=== PATIENT | male | born 1975 | race Caucasian/White ===

== ENCOUNTER 2020-07-26 15:17 | Emergency (ER) | payer BC, OTHER ==
[~2020-07-26] VITALS: Ht 180.3 cm; Wt 111.6 kg
[2020-07-26] MEDS ORDERED: VENTOLIN HFA 1818 GM INH (15:30)
[2020-07-26] MEDS ORDERED: SUPER THERAVIT1 EACH PO (15:30)
[2020-07-26] MEDS ORDERED: NORCO 10-325 T1 EACH PO (15:30)
[2020-07-26] MEDS ORDERED: REQUIP 1 MG TABL1 M1 PO (15:30)
[2020-07-26] MEDS ORDERED: GABAPENTIN800 M1 PO (15:31)
[2020-07-26] MEDS ORDERED: TRAZODONE HCL50 MG PO (15:31)
[2020-07-26] MEDS ORDERED: ALLEGRA ALLERG180 MG PO (15:31)
[2020-07-26] MEDS ORDERED: ZYRTEC10 M5 PO (15:31)
[2020-07-26] MEDS ORDERED: HYDROCHLOROTHIA25 M1 PO (15:32)
[2020-07-26 15:43] LABS: ABSOLUTE NEUTROPHILS 7.2 thou/uL (1.4-8.2); BASOPHILS 0.8 % (0.0-2.0); EOSINOPHILS 2.2 % (0.0-3.0); HEMATOCRIT 47.4 % (42.0-52.0); HEMOGLOBIN 16.3 gm/dL (14.0-18.0); LYMPHOCYTES 18.4 % (24.0-44.0); MCH 32.1 pg (26.0-34.0); MCHC 34.4 g/dL (28.0-37.0); MCV 93.2 fL (80.0-100.0); MONOCYTES 8.7 % (1.0-8.0); PLATELET COUNT 248 thou/uL (150-400); POLYS 69.9 % (36.0-66.0); RBC 5.08 mil/uL (4.50-6.00); RDW 14.7 % (10.5-14.5); WBC 10.3 thou/uL (4.0-11.0)
[2020-07-26 15:58] LABS: CALCIUM 9.1 mg/dL (8.5-10.1); CREATININE 1.3 mg/dL (0.7-1.3); POTASSIUM 3.7 mmol/L (3.5-5.1)
[2020-07-26 16:04] LABS: ALBUMIN 4.2 g/dL (3.4-5.0); TOTAL BILIRUBIN 0.6 mg/dL (0.2-1.0); TOTAL PROTEIN 7.5 g/dL (6.4-8.2)
[2020-07-26] MEDS ORDERED: VIBRAMYCIN 100100 MG PO (17:23)
[2020-07-26] MEDS ORDERED: COMPAZINE10 M2 PO (17:23)
[2020-07-26] MEDS ORDERED: NAPROSYN500 MG PO (17:23)
[2020-07-26] MEDS ORDERED: TYLENOL325 M1 PO (17:23)
[2020-07-26 17:34] VITALS: BP 144/95
== END 2020-07-26 17:34 | disposition home or self-care (01) ==
LOC: ER 15:17
PROVIDERS: Emergency Medicine
DX: G43.909 Migraine, unspecified, not intractable, without status migrainosus (principal); K21.9 Gastro-esophageal reflux disease without esophagitis; Z90.49 Acquired absence of other specified parts of digestive tract; Z79.899 Other long term (current) drug therapy